=== PATIENT | female | born 1955 | race Caucasian/White ===

== ENCOUNTER → 2016-07-02 | Outpatient (CLI) | payer MEDICARE ==
--- NOTE | 2016-07-02 12:00 | ECHOF ---
Referral Reason:R60.9 edema MEASUREMENTS -------- HEIGHT: 162.6 cm WEIGHT: 116.1 kg BP: 134/71 RVIDd: 2.9 cm (< 3.3) IVSd: 1.3 cm (0.6 - 1.1) LVIDd: 4.6 cm (3.9 - 5.3) LVPWd: 1.3 cm (0.6 - 1.1) IVSs: 1.7 cm LVIDs: 3.6 cm LVPWs: 1.8 cm LA Diam: 3.5 cm (2.7 - 3.8) LAESV Index (A-L): 21.67 ml/m Ao Diam: 3.6 cm (2.0 - 3.7) AV Cusp: 2.1 cm (1.5 - 2.6) MV EXCURSION: 17.354 mm (> 18.000) MV EF SLOPE: 66 mm/s (70 - 150) EPSS: 1.8 cm MV E Jeffery: 1.11 m/s MV DecT: 165 ms MV A Jeffery: 1.01 m/s MV E/A Ratio: 1.10 RAP: 5.00 mmHg RVSP: 25.15 mmHg FINDINGS -------- Sinus rhythm. This was a technically adequate study. The left ventricular size is normal. There is mild concentric left ventricular hypertrophy. Overall left ventricular systolic function is low-normal with, an EF between 50 - 55 %. The right ventricle is normal in size. Normal LA size by volume 22+/-6 ml/m2. The right atrium is normal in size. Aortic valve is trileaflet and is mildly thickened. The mitral valve leaflets are mildly thickened. Mild mitral annular calcification present. Oqcn-cf-sxobahst mitral regurgitation is present. Mild tricuspid regurgitation present. Right ventricular systolic pressure is normal at < 35 mmHg. The pulmonic valve was not well visualized. The aortic root size is normal. The inferior vena cava is mildly dilated. The pericardium is normal. CONCLUSIONS -------- 1. Sinus rhythm. 2. The mitral valve leaflets are mildly thickened. 3. Mild mitral annular calcification present. 4. Rgyg-of-cxyrxwuy mitral regurgitation is present. 5. Mild tricuspid regurgitation present. 6. Right ventricular systolic pressure is normal at < 35 mmHg. 7. The pulmonic valve was not well visualized. 8. The aortic root size is normal. 9. The inferior vena cava is mildly dilated. 10. The pericardium is normal. 11. This was a technically adequate study. 12. The left ventricular size is normal. 13. There is mild concentric left ventricular hypertrophy. 14. Overall left ventricular systolic function is low-normal with, an EF between 50 - 55 %. 15. The right ventricle is normal in size. 16. Normal LA size by volume 22+/-6 ml/m2. 17. The right atrium is normal in size. 18. Aortic valve is trileaflet and is mildly thickened. HULL SORTER: Tsering Disla RDCS
== END | disposition home or self-care (01) ==
LOC: RADECHMAIN 08:21
PROVIDERS: ATTEND Family Medicine
DX: I08.3 Combined rheumatic disorders of mitral, aortic and tricuspid valves (principal)
CPT/HCPCS: 93306

== ENCOUNTER → 2017-06-11 | Outpatient (CLI) | payer MEDICARE ==
--- NOTE | 2017-06-11 09:03 | CT ---
EXAMINATION TYPE: CT brain wo/w con DATE OF EXAM: 06/11/2017 COMPARISON: NONE HISTORY: Unspecified visual disturbance, mild cognitive impairment and dizziness CT DLP: 2024.40mGycm CONTRAST: CT scan of the head is performed without and with IV Contrast, patient injected with 100 ml mL of Iso misty 300. Unenhanced followed by contrast enhanced CT of the brain is submitted for evaluation. The ventricles are midline. Age-related atrophic and chronic small vessel ischemic change noted. Re mote insult posterior left parietal lobe. Small remote left temporal insult noted as well. There is n o evidence for intracranial hemorrhage or extra-axial collection. No mass effects are identified. V isualized bony calvarium is intact. Contrast is administered and no enhancing lesions are detected. No pathologic enhancement is identified. If symptoms persist consider MRI. IMPRESSION: 1. No enhancing lesion identified or pathologic enhancement. 2. Age-related atrophic and chronic small vessel ischemic change with areas of remote insult as noted .
== END | disposition home or self-care (01) ==
LOC: RADCTMAIN 08:12
PROVIDERS: ATTEND Family Medicine
DX: G31.9 Degenerative disease of nervous system, unspecified (principal); G31.84 Mild cognitive impairment of uncertain or unknown etiology; H53.9 Unspecified visual disturbance; I67.82 Cerebral ischemia
CPT/HCPCS: 70470; Q9967

== ENCOUNTER 2017-11-25 10:51 | Day surgery (SDC) | payer MEDICARE ==
[2017-11-18 14:41] VITALS: BMI 46.0
[~2017-11-25 10:51] MED LIST: LACTATED RINGERS 1,000 ML IV SCH
[2017-11-25] MEDS: PHENYLEPHRINE 10% OPHTH DROPS 5 ML BTL OP ONE ×3 (12:48→13:17)
[2017-11-25] MEDS: CYCLOPENTOLATE 1% OPHTH SOLN 2 ML BTL OP ONE ×3 (12:52→13:20)
[2017-11-25] MEDS: KETOROLAC 0.5% OPHTH DROPS 5 ML BTL OP ONE ×3 (13:02→13:23)
[2017-11-25] MEDS ORDERED: LIDOCAINE 1% 20 ML VIAL (10MG/ML) FOR IV START INTRADERMA ONE (13:05)
[2017-11-25 13:09] VITALS: RESP 18; TEMP 97.6
[2017-11-25] MEDS ORDERED: MIDAZOLAM 2 MG/2 ML VIAL IVP ONE (13:19)
[2017-11-25] MEDS ORDERED: PROPOFOL 10 MG/ML 20 ML VIAL IV ONE (13:33)
[2017-11-25] MEDS ORDERED: HYALURONATE SODIUM INTRAOCULAR 1 EACH SYRINGE (10MG/ML) INTRAOCULA ONE (13:38)
[2017-11-25] MEDS ORDERED: BALANCED SALT IRRIG SOLN COMB2 15 ML IRRIG.SOLN IRRIGATION ONE (13:38)
[2017-11-25] MEDS: TIMOLOL 0.5% OPHTH DROPS 5 ML BTL RIGHT EYE ONE ×2 (13:39→13:49)
[2017-11-25] MEDS ORDERED: EPINEPHrine (PF) 0.5 ML in BALANCED SALT IRRIG SOLN COMB2 500 ML IRRIGATION ONE (13:50)
--- NOTE | 2017-11-25 14:00 | P.OP ---
Date of Procedure: 11/25/17 Procedure(s) Performed: PREOPERATIVE DIAGNOSIS: Cataract, right eye. POSTOPERATIVE DIAGNOSIS: Cataract, right eye. OPERATION: Phacoemulsification of cataract, intraocular lens placement, right eye. DESCRIPTION OF PROCEDURE: The patient was taken to the operating room. Intravenous Propofol was given so as to bring about sedation. The following mixture was given for local anesthesia: 5 mL of 2% lidocaine, 5 mL of 0.75% Marcaine, and 1 mL of Wydase. Approximately 4 mL was injected in the retrobulbar space of the surgical eye. Additional 1 mL was then directed to the temporal area of the surgical eye. This was performed to allow adequate neurological block of the facial muscles. The patient was revived. The patient was prepped and draped in the usual sterile manner for the operative eye. A lid speculum was put into position. The conjunctiva was resected back from the limbus in the 12 o'clock position. Bleeding was controlled with electrocautery. A #69 blade was then used and a half-thickness scleral incision approximately 1-mm posterior to the limbus was made on bare sclera. This was shelved in the clear cornea using a crescent knife. Next a 15-degree blade was used to make a stab incision at the 3 o'clock position at the corneolimbal interface. A keratome blade was then used and the superior wound was extended into the anterior chamber. Viscoelastic was injected into the anterior chamber to maintain its form. A cystotome was used and a continuous anterior capsulotomy was made. Hydrodissection of the lens cortex using a blunt cannula and BSS was performed. A phaco probe was then introduced and a groove extending from 12 to 6 o'clock in the lens was created. A Edy wand was used through the stab incision and used to perform a divide and conquer dismantling of the cataract. An irrigation aspiration probe was utilized and any residual cortex was removed from the eye. Again, viscoelastic was injected into the anterior chamber. An Dominick posterior chamber lens implant was placed in a delivery cartridge and injected into the anterior chamber. A Sinskey hook was utilized to spin the lens into position within the capsular bag. The irrigation and aspiration probe was again introduced and any residual viscoelastic was removed from the eye. BSS was injected via blunt canula into the limbal stab incision and the anterior chamber was re-inflated. The conjunctiva was reapproximated using electrocautery. One drop of 0.25% Timoptic was placed over the corneal along with an antibiotic ophthalmic ointment. Two sterile patches and a Herrera eye shield were taped into position. The patient was transported to the recovery room in stable condition. Pathology: none sent Condition: stable Disposition: same day
[2017-11-25 14:32] VITALS: BP 141/71; PULSE 74
[2017-11-25] MEDS ORDERED: LACTATED RINGERS 1,000 ML IV SCH (14:52)
[2017-11-25] MEDS ORDERED: BUPIVACAINE (PF) 0.75% 5 ML, HYALURONIDASE, HUMAN RECOMB 150 UNIT, LIDOCAINE 2% (PF) 10... MISCELLANE ONE ×3 (23:00)
[2017-11-25] MEDS ORDERED: GENTAMICIN/PREDNISOL AC OPHTH OINT 3.5GM OPHTHALMIC ONE (23:00)
[2017-11-25] MEDS ORDERED: TIMOLOL 0.5% OPHTH DROPS 5 ML BTL OP ONE (23:00)
== END 2017-11-25 14:53 | disposition home or self-care (01) ==
LOC: OR 10:51
PROVIDERS: ATTEND Ophthalmology
DX: H25.13 Age-related nuclear cataract, bilateral (principal); H04.129 Dry eye syndrome of unspecified lacrimal gland; H53.009 Unspecified amblyopia, unspecified eye; M19.90 Unspecified osteoarthritis, unspecified site; F32.9 Major depressive disorder, single episode, unspecified; I25.10 Atherosclerotic heart disease of native coronary artery without angina pectoris; I25.2 Old myocardial infarction; G47.33 Obstructive sleep apnea (adult) (pediatric); J44.9 Chronic obstructive pulmonary disease, unspecified; Z86.73 Personal history of transient ischemic attack (TIA), and cerebral infarction without residual deficits; M79.7 Fibromyalgia; K21.9 Gastro-esophageal reflux disease without esophagitis; Z79.891 Long term (current) use of opiate analgesic; Z79.899 Other long term (current) drug therapy
CPT/HCPCS: 66984; V2632; J2250; J0171; J2704

== ENCOUNTER 2018-02-24 07:22 | Day surgery (SDC) | payer MEDICARE ==
[2018-02-19 17:44] VITALS: BMI 46.0
[~2018-02-24 07:22] MED LIST changes: -LACTATED RINGERS 1,000 ML IV SCH; +LIDOCAINE 1% 20 ML VIAL (10MG/ML) FOR IV START INTRADERMA PRN
[2018-02-24 08:40] VITALS: TEMP 97.6
[2018-02-24] MEDS: CYCLOPENTOLATE 1% OPHTH SOLN 2 ML BTL OP ONE ×3 (08:44→09:12)
[2018-02-24] MEDS: PHENYLEPHRINE 10% OPHTH DROPS 5 ML BTL OP ONE ×3 (08:49→09:16)
[2018-02-24] MEDS: KETOROLAC 0.5% OPHTH DROPS 5 ML BTL OP ONE ×3 (08:54→09:20)
[2018-02-24] MEDS: LACTATED RINGERS 1,000 ML IV SCH ×2 (08:59→09:20)
[2018-02-24] MEDS ORDERED: PROPOFOL 10 MG/ML 20 ML VIAL IV ONE (09:20)
[2018-02-24] MEDS ORDERED: EPINEPHrine (PF) 0.5 ML in BALANCED SALT IRRIG SOLN COMB2 500 ML IRRIGATION ONE (09:29)
[2018-02-24] MEDS ORDERED: BALANCED SALT IRRIG SOLN COMB2 15 ML IRRIG.SOLN INTRAOCULA ONE (09:35)
[2018-02-24] MEDS ORDERED: HYALURONATE SODIUM INTRAOCULAR 1 EACH SYRINGE (10MG/ML) INTRAOCULA ONE (09:36)
--- NOTE | 2018-02-24 09:44 | P.OP ---
Date of Procedure: 02/24/18 Procedure(s) Performed: PREOPERATIVE DIAGNOSIS: Cataract, left eye. POSTOPERATIVE DIAGNOSIS: Cataract, left eye. OPERATION: Phacoemulsification of cataract, intraocular lens placement, left eye. DESCRIPTION OF PROCEDURE: The patient was taken to the operating room. Intravenous Propofol was given so as to bring about sedation. The following mixture was given for local anesthesia: 5 mL of 2% lidocaine, 5 mL of 0.75% Marcaine, and 1 mL of Wydase. Approximately 4 mL was injected in the retrobulbar space of the surgical eye. Additional 1 mL was then directed to the temporal area of the surgical eye. This was performed to allow adequate neurological block of the facial muscles. The patient was revived. The patient was prepped and draped in the usual sterile manner for the operative eye. A lid speculum was put into position. The conjunctiva was resected back from the limbus in the 12 o'clock position. Bleeding was controlled with electrocautery. A #69 blade was then used and a half-thickness scleral incision approximately 1-mm posterior to the limbus was made on bare sclera. This was shelved in the clear cornea using a crescent knife. Next a 15-degree blade was used to make a stab incision at the 3 o'clock position at the corneolimbal interface. A keratome blade was then used and the superior wound was extended into the anterior chamber. Viscoelastic was injected into the anterior chamber to maintain its form. A cystotome was used and a continuous anterior capsulotomy was made. Hydrodissection of the lens cortex using a blunt cannula and BSS was performed. A phaco probe was then introduced and a groove extending from 12 to 6 o'clock in the lens was created. A Edy wand was used through the stab incision and used to perform a divide and conquer dismantling of the cataract. An irrigation aspiration probe was utilized and any residual cortex was removed from the eye. Again, viscoelastic was injected into the anterior chamber. An Dominick posterior chamber lens implant was placed in a delivery cartridge and injected into the anterior chamber. A Sinskey hook was utilized to spin the lens into position within the capsular bag. The irrigation and aspiration probe was again introduced and any residual viscoelastic was removed from the eye. BSS was injected via blunt canula into the limbal stab incision and the anterior chamber was re-inflated. The conjunctiva was reapproximated using electrocautery. One drop of 0.25% Timoptic was placed over the corneal along with an antibiotic ophthalmic ointment. Two sterile patches and a Herrera eye shield were taped into position. The patient was transported to the recovery room in stable condition. Pathology: none sent Condition: stable Disposition: same day
[2018-02-24 10:08] VITALS: RESP 16
[2018-02-24 10:09] VITALS: BP 145/79; PULSE 68
[2018-02-24] MEDS ORDERED: BUPIVACAINE (PF) 0.75% 5 ML, HYALURONIDASE, HUMAN RECOMB 150 UNIT, LIDOCAINE 2% (PF) 10... MISCELLANE ONE ×3 (23:00)
[2018-02-24] MEDS ORDERED: GENTAMICIN/PREDNISOL AC OPHTH OINT 3.5GM OPHTHALMIC ONE (23:00)
[2018-02-24] MEDS ORDERED: TIMOLOL 0.5% OPHTH DROPS 5 ML BTL OP ONE (23:00)
== END 2018-02-24 10:51 | disposition home or self-care (01) ==
LOC: OR 07:22
PROVIDERS: ATTEND Ophthalmology
DX: H25.12 Age-related nuclear cataract, left eye (principal); H04.129 Dry eye syndrome of unspecified lacrimal gland; H50.9 Unspecified strabismus; F32.9 Major depressive disorder, single episode, unspecified; M19.90 Unspecified osteoarthritis, unspecified site; I69.354 Hemiplegia and hemiparesis following cerebral infarction affecting left non-dominant side; K21.9 Gastro-esophageal reflux disease without esophagitis; Z79.899 Other long term (current) drug therapy
CPT/HCPCS: 66984; V2632; J3470; J2001; J0171; J2704